=== PATIENT | male | born 1950 | race Caucasian/White ===

== ENCOUNTER 2016-12-30 20:33 | Emergency (ER) | payer MEDICARE, OTHER ==
[~2016-12-30 20:33] MED LIST: ASPIR 8181 MG PO; CADUET 10 MG-41 EACH PO; COMBIVENT RESPIM4 GM IH; COUMADIN3 MG PO; COUMADIN4 MG PO; GLUCOPHAGE1000 MG PO; GLUCOTROL XL10 MG PO; HYDROCHLOROTHIA50 MG PO; K-DUR20 MEQ PO; LANTUS100 UNIT/1 SQ; LEVAQUIN750 MG PO; LORTAB 10-3251 EACH PO; LOVAZA1 G PO; LYRICA300 MG PO; MAGNESIUM400 MG PO; MEDROL4 M1 PO; MICARDIS80 MG PO; MIRAPEX0.25 MG PO; NICOTINE TRANSD14 MG TOP; PROAIR HFA8.5 GM IH; SYMBICORT 16010.2 GM IH; TOPROL XL50 MG PO
== END 2016-12-31 13:20 | disposition home or self-care (01) ==
LOC: ER 20:33
DX: I11.0 Hypertensive heart disease with heart failure (principal); I50.9 Heart failure, unspecified; I25.10 Atherosclerotic heart disease of native coronary artery without angina pectoris; J44.9 Chronic obstructive pulmonary disease, unspecified; Z79.84 Long term (current) use of oral hypoglycemic drugs; Z79.899 Other long term (current) drug therapy; Z79.01 Long term (current) use of anticoagulants
CPT/HCPCS: 36415; 96374; J1940